=== PATIENT | male | born 1980 | race Caucasian/White ===

== ENCOUNTER 2017-03-02 07:45 | Day surgery (SDC) | payer BC ==
[2017-02-28 12:45] VITALS: BMI 30.6
[~2017-03-02 07:45] MED LIST: DEXAMETHASONE SOD PHOSPHATE 10 MG/ML 1 ML VIAL IV ONE; HEPARIN SODIUM,PORCINE 5,000 UNIT/ML 1 ML VIAL SQ ONE; HYDROmorphone 1 MG/ML 1 ML SYRINGE IVP PRN; LACTATED RINGERS 1,000 ML IV SCH; ONDANSETRON 4 MG/2 ML VIAL IVP ONE; ceFAZolin 2 GM in SODIUM CHLORIDE 0.9% 100 ML IVPB ONE
[2017-03-02 07:57] VITALS: TEMP 98.1
[2017-03-02] MEDS ORDERED: LIDOCAINE 1% 20 ML VIAL (10MG/ML) FOR IV START SQ ONE (08:34)
[2017-03-02] MEDS ORDERED: fentaNYL (PF) 50 MCG/ML 2 ML AMP ONE (11:08)
[2017-03-02] MEDS ORDERED: MIDAZOLAM 2 MG/2 ML VIAL ONE (11:08)
[2017-03-02] MEDS ORDERED: GLYCOPYRROLATE 0.2 MG/ML 2 ML VIAL ONE (11:08)
[2017-03-02] MEDS ORDERED: NEOSTIGMINE 1 MG/ML 10 ML VIAL ONE (11:08)
[2017-03-02] MEDS ORDERED: HYDROmorphone (PF) 1 MG/ML ONE (11:08)
[2017-03-02] MEDS ORDERED: SUCCINYLCHOLINE CHLORIDE 100 MG/5 ML SYR IV ONE (11:08)
[2017-03-02] MEDS ORDERED: PROPOFOL 10 MG/ML 20 ML VIAL IV ONE (11:08)
[2017-03-02] MEDS ORDERED: LIDOCAINE 1% INJ 10MG/ML (20 ML MDV) ONE (11:08)
[2017-03-02] MEDS ORDERED: ROCURONIUM BROMIDE 10 MG/ML 10 ML VIAL IV ONE (11:08)
[2017-03-02] MEDS ORDERED: LACTATED RINGERS 1,000 ML IV ONE (11:27)
[2017-03-02] MEDS ORDERED: BUPIVACAIN-EPI 0.25%-1:200,000 30 ML VIAL SQ ONE (11:43)
--- NOTE | 2017-03-02 13:01 | P.OP ---
Date of Procedure: 03/02/17 Preoperative Diagnosis: Right inguinal hernia, (primary, unliateral, reducible, non-obstructed) Postoperative Diagnosis: large direct and small indirect inguinal hernia with cord lipoma. Procedure(s) Performed: Robot-assisted laparoscopic inguinal hernia repair of direct, indirect inguinal hernia primary unilateral of the right side. Implants: 12 x 16 [employer] supervisor screen making mesh Anesthesia: GETA Surgeon: Yemi Hinson Pathology: other Condition: stable Indications for Procedure: Operative Findings: Discharge direct, small indirect, cord lipoma Description of Procedure: Informed consent was obtained patient and then The patient was brought to the operating room and placed in supine position. General anesthesia with endotracheal intubation was performed as per anesthesia team. Patient urinated preoperatively therefore no Baumann catheter was used. Duraprep was used to prep the skin followed by application of sterile drapes . He was placed in the lithotomy position. A timeout was performed to verify correct patient, correct procedure and correct side. Patient was confirmed to receive perioperative IV antibiotics, subcutaneous heparin 5000 units and bilateral SCDs were placed. The left upper quadrant point was identified and a stab incision was made. Optiview technique using the 5 mm trocar was used to enter the abdominal cavity after which was insufflated to 15 mmHg. The 12 and 8 mm robotic trochars were placed under direct vision in the supraumbilical and the right and left quadrant respectively. The patient was placed in Trendelenburg position after which the robot was docked. A single unilateral hernia was identified on the right side. The robot was thendocehed . The appropriate instruments were introduced after which the median umbilical fold was retracted laterally towards the left side a small incision was made at the junction of the umbilical fold and the peritoneum and carried all the way laterally thus creating a small plane in the preperitoneal space. This did this was further dissected with the help of blunt dissection using gentle stroking maneuvers all the way down to to the opposite side pubic tubercle medially. The peritoneal fold inferiorly was dissected so as to obtain good nothing by mouth view. There was a very small indirect inguinal hernia sac which was pulled off the cord structures along with a cord lipoma. There was a very large lobulated direct hernia that was reduced with dissection thus allowing good visualization of the pubic arch. The critical view of the MPO was done and all hernial orifices was exposed a 12 x 16 [employer] supervisor screen making mesh was introduced in the abdominal cavity with the lower part above the level of the peritoneal fold was then unfolded so that it covered all the orifices and covered the Shar's ligament medially once again pain positioned perfectly to seal was applied to the inferior edge of the mesh as well as around the Shar's ligament after which the peritoneal flaps were closed with the help of running 2 0 v lock included 2 small holes in the peritoneum as well. The robot was then undocked, all sutures and lipoma filling the hernia sac were removed after which the supraumbilical fascial defect was closed with a Lenin Faustin and 0 PDS. Skin was closed with 4-0 Monocryl and Dermabond was applied and appropriate anesthesia was infiltrated into the subcutaneous tissues. Patient was extubated and taken to recovery room in stable condition
[2017-03-02] MEDS ORDERED: KETOROLAC 30 MG/ML 1 ML VIAL IVP ONE (13:26)
[2017-03-02 14:47] VITALS: RESP 16
[2017-03-02 15:19] VITALS: BP 119/73; PULSE 63
== END 2017-03-02 15:46 | disposition home or self-care (01) ==
LOC: OR 07:45
PROVIDERS: ATTEND Surgery
DX: K40.90 Unilateral inguinal hernia, without obstruction or gangrene, not specified as recurrent (principal); D17.6 Benign lipomatous neoplasm of spermatic cord; K21.9 Gastro-esophageal reflux disease without esophagitis
CPT/HCPCS: 49650; S2900; 88304